=== PATIENT | male | born 1985 | race Caucasian/White ===

== ENCOUNTER 2017-09-22 14:44 | Emergency (ER) | payer OTHER ==
[~2017-09-22 14:44] MED LIST: LOR5 PO; SIM10 PO; SIMV-49 PO
[2017-09-22 15:12] VITALS: BP 144/87
--- NOTE | 2017-09-22 15:15 | ER Report ---
History and Physical Time Seen By MD: 15:00 HPI/ROS CHIEF COMPLAINT: head laceration HISTORY OF PRESENT ILLNESS: PATTERNMAKER HAND pt was trying to turn a wrench that then swong and hit pt in head. Pt denies loc. pt has mild headache. No nausea or vomiting. pt is not on any blood thinners. Pt not sure of last tetnus shot. pt has a 3cm vertical laceration that goes thru scalp and frontal forhead. Bleeding controlled upon arrival. no neck pain REVIEW OF SYSTEMS: skin: + laceration Neuro: + mild headache, no loc Musculoskeletal: No back pain or neck pain. Allergies: Coded Allergies: Penicillins (Verified Allergy, Unknown, 12/22/16) EHR CONVERSION Home Meds Discontinued Reported Medications Simvastatin (SIMVASTATIN) 20 Mg Tablet, 20 MG PO HS, TAB 12/22/16 Past Medical/Surgical History Pmhx: denies any current medical hx or medications Pshx: tonsillectomy Reviewed Nurses Notes: Yes Old Medical Records Reviewed: Yes Smoking Status: Never Smoker Hx Substance Use Disorder: No Hx Alcohol Use: Yes (OCC) Constitutional Vital Sign - Last 24 Hours 09/22/17 15:12 Temp 98.2 Pulse 101 Resp 18 B/P (MAP) 144/87 Pulse Ox 93 O2 Delivery Room Air Physical Exam General Appearance: The patient is alert, has no immediate need for airway protection and no signs of toxicity. Eyes: Pupils equal and round no pallor or injection, EOMI ENT: no pharyngeal erythema or exudates, Mucous membranes are moist, TM are nl b/l, neg hemotympanums Respiratory: There are no retractions, lungs are clear to auscultation. Cardiovascular: Regular rate and rhythm. pulses are equal and symmetrical Gastrointestinal: Abdomen is soft and non tender, no masses, bowel sounds normal, no guarding, no rigidity or rebound Neurological: Cranial nerves II-XII grossly intact, no sensory or motor loss Skin: Warm and dry, no rashes, 3cm head laceration vertical thru scalp to anterior forhead Musculoskeletal: Neck is supple non tender, no vertebral tenderness Extremities are nontender, non swollen and have full range of motion. DIFFERENTIAL DIAGNOSIS: After history and physical exam differential diagnosis was considered for laceration Medical Decision Making ED Course/Re-evaluation ED Course Boostrix ordered since pt unaware of last tetnus shot Procedure: Laceration repair. Verbal consent was obtained from the patient. The 3cm laceration on the frontal forhead was anesthetized in the usual fashion using 1% lido with epi. The wound was scrubbed, draped and explored to its base with a gloved finger. There were no deep structures involved. The wound was repaired with 6.0 ethlon using 8 interrupted sutures. The wound repair was simple. The procedure was performed by myself. Decision to Disposition Date: Sep 22, 2017 Decision to Disposition Time: 15:55 Depart Departure Latest Vital Signs Vital Signs Date Time Temp Pulse Resp B/P (MAP) Pulse Ox O2 Delivery O2 Flow Rate FiO2 09/22/17 15:12 98.2 101 18 144/87 93 Room Air Impression: Primary Impression: Scalp laceration Condition: Improved Disposition: HOME OR SELF-CARE New Scripts No Active Prescriptions or Reported Meds Patient Instructions: Laceration (GEN) Additional Instructions: You have 8 sutures which need to be removed in 7-10 days. Return for any concerns. antibioitic ointment to wound twice a day. Keep area clean. Problem Qualifiers Primary Impression: Scalp laceration Encounter type: initial encounter Qualified Codes: S01.01XA - Laceration without foreign body of scalp, initial encounter SHEILA GOVEA DO Sep 22, 2017 15:15
[2017-09-22] MEDS ORDERED: DIPHTH/TETANUS/ACEL. PERTUSSIS IM ONLY ONE (15:20)
== END 2017-09-22 16:14 | disposition home or self-care (01) ==
LOC: ER 15:13
DX: S01.01XA Laceration without foreign body of scalp, initial encounter (principal); W22.8XXA Striking against or struck by other objects, initial encounter
CPT/HCPCS: 90471; 90715; 99283